=== PATIENT | male | born 1960 | race Caucasian/White ===

== ENCOUNTER 2021-07-31 14:42 | Emergency (ER) | payer OTHER ==
[~2021-07-31] VITALS: Ht 182.9 cm; Wt 104.3 kg
[2021-07-31 19:04] LABS: BUN/CREATININE RATIO 14 (0-10)
[2021-07-31 19:10] LABS: HEMOGLOBIN 15.4 gm/dl (14.0-17.5); RED BLOOD COUNT 5.01 M/UL (4.20-5.50); WHITE BLOOD COUNT 7.5 K/UL (4.5-11.0)
== END 2021-08-01 04:00 | disposition home or self-care (01) ==
LOC: ER1 14:42
PROVIDERS: Physician Assistant
DX: U07.1 COVID-19 (principal); Z23 Encounter for immunization; E11.9 Type 2 diabetes mellitus without complications; I10 Essential (primary) hypertension; E78.5 Hyperlipidemia, unspecified
CPT/HCPCS: 71045; 80048; 83605; 85025; 87040; 99283; M0243